=== PATIENT | female | born 1935 | race Caucasian/White ===

== ENCOUNTER 2016-06-28 18:25 | Inpatient (IN) | payer OTHER ==
[~2016-06-28] VITALS: Ht 167.6 cm; Wt 72.5 kg
[~2016-06-28 18:25] MED LIST: ATORVASTATIN CA40 MG PO; CARDIZEM CD,CA240 MG PO; CLORAZEPATE D3.75 MG PO; CYANOCOBALAM1000 MCG PO; DIGOX125 MCG PO; DILTIAZEM 24HR240 MG PO; ENDOCET 5-3251 EACH PO; EVISTA60 MG PO; FUROSEMIDE20 MG PO; HYDROCHLOROTHIA25 MG PO; LEVOFLOXACIN750 MG PO; LIORESAL10 MG PO; PHENYTOIN SODI100 M1 PO; POTASSIUM CHLO10 ME3 PO; PRESERVISION T1 EACH PO; PROTONIX40 MG PO; SENNA PLUS TAB1 EACH PO; SODIUM CHLORIDE1 G1 PO; TOPIRAMATE25 MG PO; TRAMADOL HCL50 MG PO; TYLENOL ARTHRI650 MG PO; WARFARIN SODIUM2 MG PO
[2016-06-28 20:27] LABS: EOSINOPHIL (%) 0.2 % (0-5); HEMATOCRIT 43.7 % (36.0-46.0); IMMATURE GRANULOCYTE (%) 0.7 % (0.0-0.7); INSTRUMENT ABS NEUTROPHIL CT 5.1 K/uL; LYMPHOCYTE COUNT 0.2 K/uL (1.0-2.8); MCH 30.8 PG (29.0-34.0); MCHC 32.7 G/DL (30.0-36.0); MCV 94.2 FL (83-99); MEAN PLAT.VOLUME 10.8 uM^3 (9.5-12.4); MONOCYTE COUNT 0.3 K/uL (0-0.8); NEUTROPHIL COUNT 5.1 K/uL (1.8-6.4); PLATELET COUNT 183 K/uL (156-360); RBC DIS.WIDTH-CV 14.6 % (11.8-14.6); RBC DIS.WIDTH-SD 50.9 % (39-53); RED BLOOD COUNT 4.64 M/uL (3.80-5.20); WHITE BLOOD COUNT 5.6 K/uL (4.1-10.2)
[2016-06-28 20:30] LABS: CHLORIDE 109 mEq/L (99-109); POTASSIUM 3.4 mEq/L (3.7-5.4); SODIUM 141 mEq/L (136-147)
[2016-06-28 20:32] LABS: GLUCOSE 142 mg/dL (70-99)
[2016-06-28 20:33] LABS: ANION GAP 11 MEQ/L (2-14)
[2016-06-28 20:35] LABS: ALKALINE PHOSPHATASE 86 IU/L (3-129)
[2016-06-28 20:36] LABS: GFR ESTIMATE (CALCULATED) > 59 mL/min/
[2016-06-28 20:37] LABS: UREA NITROGEN (BUN) 30 mg/dL (9-23)
[2016-06-28 20:39] LABS: LIPASE 18 U/L (1.0-51.0)
[2016-06-28 20:48] LABS: ADD MIUA? YES; BILIRUBIN NEGATIVE; BLOOD MODERATE; COLOR YELLOW ((YELLOW)); GLUCOSE (STRIP) NEGATIVE; KETONES 5; LEUKOCYTES NEGATIVE; NITRITE NEGATIVE; PROTEIN (STRIP) 100; SPECIFIC GRAVITY 1.016 (1.000-1.030); UROBILINOGEN 0.2 MG/DL (0.2-1.0)
[2016-06-28 20:49] LABS: TROP-I INTERPRETATION POSITIVE
[2016-06-28 20:55] LABS: BACTERIA 1+ /HPF; CALCIUM OXALATE CRYSTALS 1+ /HPF; EPITHELIAL CELLS RARE /HPF; MUCUS NONE SEEN /LPF; RED BLOOD CELLS TNTC /HPF (0-5); UCUL ADDED? NO
[2016-06-28 21:08] LABS: TROPONIN-I 4.17 ng/mL (0.0-0.30)
[2016-06-28] MEDS ORDERED: K-DUR10 MEQ PO (23:27)
[2016-06-28] MEDS ORDERED: COLACE100 MG PO (23:28)
[2016-06-28] MEDS ORDERED: COUMADIN4 MG PO (23:30)
[2016-06-28] MEDS ORDERED: COUMADIN1 MG PO (23:30)
[2016-06-29 01:52] LABS: HEMATOCRIT 41.5 % (36.0-46.0); MCH 31.1 PG (29.0-34.0); MCHC 32.5 G/DL (30.0-36.0); MCV 95.6 FL (83-99); MEAN PLAT.VOLUME 11.8 uM^3 (9.5-12.4); PLATELET COUNT 171 K/uL (156-360); RBC DIS.WIDTH-CV 14.7 % (11.8-14.6); RBC DIS.WIDTH-SD 52.1 % (39-53); RED BLOOD COUNT 4.34 M/uL (3.80-5.20); WHITE BLOOD COUNT 3.8 K/uL (4.1-10.2)
[2016-06-29 02:00] LABS: DIGOXIN < 0.3 ng/mL (0.8-2.0)
[2016-06-29 03:25] VITALS: BP 138/74
[2016-06-29 04:38] LABS: TROP-I INTERPRETATION POSITIVE
[2016-06-29 04:50] LABS: CREATINE KINASE 277 IU/L (1-294); TOTAL CK 277 IU/L (1-294)
[2016-06-29 04:57] LABS: CK-MB 17.4 ng/mL (0.0-4.9)
[2016-06-29 05:59] LABS: EOSINOPHIL (%) 0.2 % (0-5); HEMATOCRIT 39.5 % (36.0-46.0); IMMATURE GRANULOCYTE (%) 0.2 % (0.0-0.7); INSTRUMENT ABS NEUTROPHIL CT 2.9 K/uL; LYMPHOCYTE COUNT 0.7 K/uL (1.0-2.8); MCH 30.9 PG (29.0-34.0); MCHC 32.4 G/DL (30.0-36.0); MCV 95.4 FL (83-99); MEAN PLAT.VOLUME 11.3 uM^3 (9.5-12.4); MONOCYTE (%) 10.4 % (3-12); MONOCYTE COUNT 0.4 K/uL (0-0.8); NEUTROPHIL (%) 71.5 % (45-76); NEUTROPHIL COUNT 2.9 K/uL (1.8-6.4); PLATELET COUNT 162 K/uL (156-360); RBC DIS.WIDTH-CV 14.8 % (11.8-14.6); RBC DIS.WIDTH-SD 52.3 % (39-53); RED BLOOD COUNT 4.14 M/uL (3.80-5.20); WHITE BLOOD COUNT 4.1 K/uL (4.1-10.2)
[2016-06-29 06:05] LABS: PTT 76.9 (25-32)
[2016-06-29 06:35] LABS: TROP-I INTERPRETATION POSITIVE; TROPONIN-I 6.27 ng/mL (0.0-0.30)
[2016-06-29 06:46] LABS: HDL CHOLESTEROL 65 MG/DL (Desirable>=50); LDL CHOLESTEROL 78 mg/dL (Desirable<100); NON-HDL CHOLESTEROL 88 mg/dL (Desirable<160); TOTAL CHOLESTEROL 153 mg/dL (Desirable<200); TRIGLYCERIDES 49 MG/DL (Normal: <150)
[2016-06-29 06:57] LABS: INTER. NORMALIZED RATIO 1.9; PROTHROMBIN TIME 19.7 (9.2-11.2)
[2016-06-29 07:13] LABS: Estimated Average Glucose 105 mg/dL (70-123); HEMOGLOBIN A1c (GLYCOHEMOGLOB) 5.3 % HGB (Below 5.7)
[2016-06-29 08:14] VITALS: BP 142/67
[2016-06-29 09:53] LABS: TROP-I INTERPRETATION POSITIVE; TROPONIN-I 4.74 ng/mL (0.0-0.30)
[2016-06-29 10:05] LABS: CREATINE KINASE 273 IU/L (1-294); TOTAL CK 273 IU/L (1-294)
[2016-06-29 11:40] VITALS: BP 121/65
[2016-06-29 13:57] LABS: TROP-I INTERPRETATION POSITIVE
[2016-06-29 16:33] VITALS: BP 129/64
[2016-06-29 16:34] LABS: ADD MIUA? YES; BILIRUBIN NEGATIVE; BLOOD LARGE; COLOR AMBER ((YELLOW)); GLUCOSE (STRIP) NEGATIVE; KETONES NEGATIVE; LEUKOCYTES MODERATE; NITRITE NEGATIVE; PROTEIN (STRIP) 30; SPECIFIC GRAVITY 1.021 (1.000-1.030)
[2016-06-29 16:50] LABS: BACTERIA RARE /HPF; CALCIUM OXALATE CRYSTALS 1+ /HPF; EPITHELIAL CELLS RARE /HPF; MUCUS 1+ /LPF; RED BLOOD CELLS TNTC /HPF (0-5); WHITE BLOOD CELLS TNTC /HPF (0-5)
[2016-06-29 20:00] VITALS: BP 143/67
[2016-06-30] VITALS (7 sets, daily range): BP systolic 144–196; BP diastolic 79–100
[2016-06-30 06:40] LABS: HEMATOCRIT 40.4 % (36.0-46.0); MCH 30.7 PG (29.0-34.0); MCHC 31.7 G/DL (30.0-36.0); MCV 96.9 FL (83-99); MEAN PLAT.VOLUME 10.9 uM^3 (9.5-12.4); PLATELET COUNT 138 K/uL (156-360); RBC DIS.WIDTH-CV 14.7 % (11.8-14.6); RBC DIS.WIDTH-SD 53.1 % (39-53); RED BLOOD COUNT 4.17 M/uL (3.80-5.20); WHITE BLOOD COUNT 3.4 K/uL (4.1-10.2)
[2016-06-30 07:06] LABS: ALKALINE PHOSPHATASE 61 IU/L (3-129); ANION GAP 9 MEQ/L (2-14); CHLORIDE 107 MEQ/L (99-109); GFR ESTIMATE (CALCULATED) > 59 mL/min/; SAMPLE HEMOLYSIS CHECK 1; SAMPLE ICTERIC CHECK 0; SAMPLE LIPEMIA CHECK 0; SODIUM 140 MEQ/L (136-147); UREA NITROGEN (BUN) 30 mg/dL (9-23)
[2016-06-30 07:07] LABS: CREATINE KINASE 129 IU/L (1-294); GLUCOSE 87 mg/dL (70-99); POTASSIUM 3.4 MEQ/L (3.7-5.4)
[2016-06-30 07:22] LABS: LACTATE DEHYDROGENASE 273 IU/L (20-246)
[2016-07-01 04:00] VITALS: BP 173/85
[2016-07-01 08:58] VITALS: BP 140/81
[2016-07-01 11:47] VITALS: BP 181/86
[2016-07-01 15:02] VITALS: BP 136/66
[2016-07-01 20:00] VITALS: BP 139/71
[2016-07-02 01:58] VITALS: BP 138/66
[2016-07-02 06:58] LABS: EOSINOPHIL (%) 1.7 % (0-5); EOSINOPHIL COUNT 0.1 K/uL (0-0.3); HEMATOCRIT 43.1 % (36.0-46.0); IMMATURE GRANULOCYTE (%) 0.3 % (0.0-0.7); LYMPHOCYTE COUNT 0.7 K/uL (1.0-2.8); MCH 30.9 PG (29.0-34.0); MCHC 31.8 G/DL (30.0-36.0); MCV 97.1 FL (83-99); MEAN PLAT.VOLUME 11.8 uM^3 (9.5-12.4); MONOCYTE (%) 7.5 % (3-12); MONOCYTE COUNT 0.2 K/uL (0-0.8); NEUTROPHIL (%) 66.7 % (45-76); PLATELET COUNT 146 K/uL (156-360); RBC DIS.WIDTH-CV 14.5 % (11.8-14.6); RBC DIS.WIDTH-SD 51.9 % (39-53); RED BLOOD COUNT 4.44 M/uL (3.80-5.20); WHITE BLOOD COUNT 2.9 K/uL (4.1-10.2)
[2016-07-02 07:13] LABS: PTT 45.2 (25-32)
[2016-07-02 08:36] LABS: ANION GAP 8 MEQ/L (2-14); CHLORIDE 106 MEQ/L (99-109); SAMPLE HEMOLYSIS CHECK 0; SAMPLE ICTERIC CHECK 0; SAMPLE LIPEMIA CHECK 0; SODIUM 138 MEQ/L (136-147)
[2016-07-02 08:42] LABS: GFR ESTIMATE (CALCULATED) > 59 mL/min/; GLUCOSE 102 mg/dL (70-99); UREA NITROGEN (BUN) 25 mg/dL (9-23)
[2016-07-02 09:00] VITALS: BP 161/92
[2016-07-02 11:57] LABS: INTER. NORMALIZED RATIO 1.1; PROTHROMBIN TIME 11.6 (9.2-11.2)
[2016-07-02 20:00] VITALS: BP 129/61
== END 2016-07-02 22:39 | disposition short-term general hospital (02) | DRG 281 ==
LOC: EME 18:25 → EDOF 06-29 00:31 → 4EAST 06-29 00:31
PROVIDERS: Emergency Medicine; Internal Medicine; Internal Medicine Cardiovascular Disease; Nurse Practitioner Adult Health
DX: I21.4 Non-ST elevation (NSTEMI) myocardial infarction (principal); M62.82 Rhabdomyolysis; I25.10 Atherosclerotic heart disease of native coronary artery without angina pectoris; R31.9 Hematuria, unspecified; R33.9 Retention of urine, unspecified; N20.0 Calculus of kidney; I48.2 Chronic atrial fibrillation; I10 Essential (primary) hypertension; E78.5 Hyperlipidemia, unspecified; I27.2 Other secondary pulmonary hypertension; I05.9 Rheumatic mitral valve disease, unspecified; G40.909 Epilepsy, unspecified, not intractable, without status epilepticus; M48.06 Spinal stenosis, lumbar region; M19.90 Unspecified osteoarthritis, unspecified site; Z79.01 Long term (current) use of anticoagulants; Z86.718 Personal history of other venous thrombosis and embolism; Z85.038 Personal history of other malignant neoplasm of large intestine; Z85.42 Personal history of malignant neoplasm of other parts of uterus
CPT/HCPCS: 72100; 74000; 76770; 80048; 80053; 80061; 80162; 80185; 81003; 82550; 82550 91; 82553; 83036; 83615; 83690; 84484; 85025; 85027; 85347; 85610; 85730; 87077; 87086; 87186; 93005; 99281; 99285; C1725; C1769; C1887; J0360; J0696; J1644; J2250; J3010; J7040; J7050

== ENCOUNTER 2016-11-19 16:14 | Emergency (ER) | payer OTHER ==
[~2016-11-19] VITALS: Ht 177.8 cm; Wt 66.8 kg
[~2016-11-19 16:14] MED LIST changes: +COLACE100 MG PO; +COUMADIN1 MG PO; +COUMADIN4 MG PO; +K-DUR10 MEQ PO
[2016-11-19 17:11] LABS: EOSINOPHIL (%) 0.2 % (0-5); HEMATOCRIT 42.7 % (36.0-46.0); IMMATURE GRANULOCYTE (%) 0.6 % (0.0-0.7); INSTRUMENT ABS NEUTROPHIL CT 4.2 K/uL; LYMPHOCYTE COUNT 0.6 K/uL (1.0-2.8); MCH 30.4 PG (29.0-34.0); MEAN PLAT.VOLUME 10.5 uM^3 (9.5-12.4); MONOCYTE (%) 6.3 % (3-12); MONOCYTE COUNT 0.3 K/uL (0-0.8); NEUTROPHIL (%) 80.6 % (45-76); NEUTROPHIL COUNT 4.2 K/uL (1.8-6.4); PLATELET COUNT 170 K/uL (156-360); RBC DIS.WIDTH-SD 47.4 % (39-53); RED BLOOD COUNT 4.64 M/uL (3.80-5.20); WHITE BLOOD COUNT 5.2 K/uL (4.1-10.2)
[2016-11-19 17:17] LABS: INTER. NORMALIZED RATIO 3.3; PROTHROMBIN TIME 37.9 SEC (10.2-12.9)
[2016-11-19 17:22] LABS: CHLORIDE 102 mEq/L (99-109); POTASSIUM 3.3 mEq/L (3.7-5.4); SODIUM 138 mEq/L (136-147)
[2016-11-19 17:24] LABS: GLUCOSE 109 mg/dL (70-99)
[2016-11-19 17:25] LABS: ANION GAP 9 MEQ/L (2-14)
[2016-11-19 17:26] LABS: TOTAL BILIRUBIN 0.7 mg/dL (0.0-1.0)
[2016-11-19 17:27] LABS: ALKALINE PHOSPHATASE 62 IU/L (3-129)
[2016-11-19 17:28] LABS: GFR ESTIMATE (CALCULATED) 56 mL/min/
[2016-11-19 17:29] LABS: UREA NITROGEN (BUN) 21 mg/dL (9-23)
[2016-11-19 17:31] LABS: ADD MIUA? YES; BILIRUBIN NEGATIVE; BLOOD LARGE; COLOR YELLOW ((YELLOW)); GLUCOSE (STRIP) NEGATIVE; KETONES NEGATIVE; LEUKOCYTES NEGATIVE; NITRITE NEGATIVE; PROTEIN (STRIP) 100; UROBILINOGEN 0.2 MG/DL (0.2-1.0)
[2016-11-19 17:32] LABS: TROP-I INTERPRETATION NEGATIVE; TROPONIN-I 0.29 ng/mL (0.0-0.30)
[2016-11-19 17:45] LABS: EPITHELIAL CELLS 1+ /HPF; RED BLOOD CELLS 20-30 /HPF (0-5); WHITE BLOOD CELLS 0-5 /HPF (0-5)
[2016-11-19 17:46] LABS: BACTERIA 1+ /HPF; CASTS NONE SEEN /LPF; CRYSTALS NONE SEEN; MUCUS NONE SEEN /LPF; UCUL ADDED? NO
[2016-11-19 21:39] VITALS: BP 169/84
== END 2016-11-19 22:05 | disposition home or self-care (01) ==
LOC: EME 16:14
PROVIDERS: Emergency Medicine
DX: E86.0 Dehydration (principal); E87.6 Hypokalemia; Z87.440 Personal history of urinary (tract) infections; K21.9 Gastro-esophageal reflux disease without esophagitis; I10 Essential (primary) hypertension; R56.9 Unspecified convulsions; Z79.01 Long term (current) use of anticoagulants
CPT/HCPCS: 74176; 80053; 81003; 84484; 85025; 85610; 85730; 93005; 99281; 99285; J1885; J7040

== ENCOUNTER 2017-04-11 11:14 | Inpatient (IN) | payer OTHER ==
[~2017-04-11] VITALS: Ht 167.6 cm; Wt 66.0 kg
[~2017-04-11 11:14] MED LIST changes: -COUMADIN4 MG PO; +COUMADIN6 MG PO; -TYLENOL ARTHRI650 MG PO; +TYLENOL EXTRA500 MG PO
[2017-04-11 11:46] LABS: BASOPHIL (%) 0.2 % (0-1); EOSINOPHIL (%) 0.5 % (0-5); HEMATOCRIT 44.8 % (36.0-46.0); HEMOGLOBIN 14.8 G/DL (11.9-15.5); IMMATURE GRANULOCYTE (%) 0.2 % (0.0-0.7); LYMPHOCYTE (%) 11.1 % (15-42); LYMPHOCYTE COUNT 0.5 K/uL (1.0-2.8); MCH 32.3 PG (29.0-34.0); MCV 97.8 FL (83-99); MONOCYTE (%) 7.1 % (3-12); MONOCYTE COUNT 0.3 K/uL (0-0.8); NEUTROPHIL (%) 80.9 % (45-76); NEUTROPHIL COUNT 3.5 K/uL (1.8-6.4); PLATELET COUNT 142 K/uL (156-360); RBC DIS.WIDTH-CV 13.2 % (11.8-14.6); RBC DIS.WIDTH-SD 47.3 % (39-53); RED BLOOD COUNT 4.58 M/uL (3.80-5.20); WHITE BLOOD COUNT 4.3 K/uL (4.1-10.2)
[2017-04-11 11:55] LABS: PTT 69.3 SEC (25-37)
[2017-04-11 12:04] LABS: ALBUMIN 4.3 g/dL (3.2-4.8); CHLORIDE 107 mEq/L (99-109); POTASSIUM 4.4 mEq/L (3.7-5.4); SODIUM 140 mEq/L (136-147)
[2017-04-11 12:05] LABS: MAGNESIUM 2.3 mg/dL (1.3-2.7)
[2017-04-11 12:07] LABS: GLUCOSE 126 mg/dL (70-99); TOTAL PROTEIN 6.9 g/dL (6.4-8.3)
[2017-04-11 12:09] LABS: TOTAL BILIRUBIN 0.5 mg/dL (0.0-1.0)
[2017-04-11 12:10] LABS: ALKALINE PHOSPHATASE 62 IU/L (3-129)
[2017-04-11 12:11] LABS: GFR ESTIMATE (CALCULATED) 56 mL/min/; TROP-I INTERPRETATION NEGATIVE; TROPONIN-I 0.02 ng/mL (0.0-0.30)
[2017-04-11 12:12] LABS: AST (GOT) 16 IU/L (2-34); UREA NITROGEN (BUN) 35 mg/dL (9-23)
[2017-04-11 12:13] LABS: ALT (GPT) 15 IU/L (3-49)
[2017-04-11 12:14] LABS: CREATINE KINASE 45 IU/L (1-294); TOTAL CK 45 IU/L (1-294)
[2017-04-11 12:14] LABS: APPEARANCE CLOUDY ((CLEAR)); BILIRUBIN NEGATIVE; BLOOD LARGE; COLOR YELLOW ((YELLOW)); GLUCOSE (STRIP) NEGATIVE; KETONES NEGATIVE; LEUKOCYTES SMALL; NITRITE NEGATIVE; PROTEIN (STRIP) 30; SPECIFIC GRAVITY 1.014 (1.000-1.030); UROBILINOGEN 0.2 MG/DL (0.2-1.0)
[2017-04-11 12:21] LABS: CKMB RELATIVE INDEX 4.4 (0.0-3.9)
[2017-04-11 12:22] LABS: DIGOXIN 0.9 ng/mL (0.8-2.0); INTER. NORMALIZED RATIO 16.7
[2017-04-11 12:35] LABS: EPITHELIAL CELLS 1+ /HPF; RED BLOOD CELLS 20-30 /HPF (0-5)
[2017-04-11 12:36] LABS: AMORPHOUS URATES CRYSTALS 3+; BACTERIA 3+ /HPF; MUCUS NONE SEEN /LPF; UCUL ADDED? YES
[2017-04-11] MEDS ORDERED: VESICARE5 MG PO (16:19)
[2017-04-11] MEDS ORDERED: PLAVIX75 MG PO (16:19)
[2017-04-11] MEDS ORDERED: FUROSEMIDE40 MG PO (16:19)
[2017-04-11 17:55] VITALS: BP 160/80
[2017-04-11 18:53] LABS: TROP-I INTERPRETATION NEGATIVE; TROPONIN-I 0.08 ng/mL (0.0-0.30)
[2017-04-11 20:22] VITALS: BP 102/55
[2017-04-11 23:17] VITALS: BP 105/58
[2017-04-12 01:05] LABS: TROP-I INTERPRETATION NEGATIVE; TROPONIN-I 0.07 ng/mL (0.0-0.30)
[2017-04-12 03:50] VITALS: BP 136/67
[2017-04-12 05:57] LABS: HEMOGLOBIN 14.3 G/DL (11.9-15.5); MCH 31.4 PG (29.0-34.0); MCHC 31.8 G/DL (30.0-36.0); MCV 98.7 FL (83-99); PLATELET COUNT 148 K/uL (156-360); RBC DIS.WIDTH-CV 13.2 % (11.8-14.6); RBC DIS.WIDTH-SD 48.1 % (39-53); RED BLOOD COUNT 4.56 M/uL (3.80-5.20); WHITE BLOOD COUNT 4.1 K/uL (4.1-10.2)
[2017-04-12 06:17] LABS: INTER. NORMALIZED RATIO 10.2
[2017-04-12 06:31] LABS: CHLORIDE 107 MEQ/L (99-109); GFR ESTIMATE (CALCULATED) 56 mL/min/; POTASSIUM 4.4 MEQ/L (3.7-5.4); SODIUM 139 MEQ/L (136-147); UREA NITROGEN (BUN) 30 mg/dL (9-23)
[2017-04-12 06:36] LABS: GLUCOSE 81 mg/dL (70-99)
[2017-04-12 08:00] VITALS: BP 138/66
[2017-04-12 13:52] VITALS: BP 133/51
[2017-04-12 15:23] LABS: INTER. NORMALIZED RATIO 6.2
[2017-04-12 15:36] VITALS: BP 136/63
[2017-04-12 19:32] VITALS: BP 115/56
[2017-04-13] VITALS (7 sets, daily range): BP systolic 112–142; BP diastolic 53–79
[2017-04-13 06:48] LABS: HEMATOCRIT 41.2 % (36.0-46.0); MCH 31.6 PG (29.0-34.0); MCHC 31.6 G/DL (30.0-36.0); PLATELET COUNT 125 K/uL (156-360); RBC DIS.WIDTH-CV 13.2 % (11.8-14.6); RBC DIS.WIDTH-SD 48.2 % (39-53); RED BLOOD COUNT 4.12 M/uL (3.80-5.20); WHITE BLOOD COUNT 3.5 K/uL (4.1-10.2)
[2017-04-13 07:14] LABS: INTER. NORMALIZED RATIO 2.5; PTT 38.1 SEC (25-37)
[2017-04-13 07:15] LABS: CHLORIDE 105 MEQ/L (99-109); CREATININE 1.1 MG/DL (0.6-1.3); GFR ESTIMATE (CALCULATED) 50 mL/min/; POTASSIUM 4.1 MEQ/L (3.7-5.4); SODIUM 135 MEQ/L (136-147); UREA NITROGEN (BUN) 32 mg/dL (9-23)
[2017-04-13 07:18] LABS: GLUCOSE 112 mg/dL (70-99)
[2017-04-14 03:42] VITALS: BP 147/71
[2017-04-14 06:11] LABS: HEMATOCRIT 36.7 % (36.0-46.0); MCH 32.2 PG (29.0-34.0); MCHC 32.7 G/DL (30.0-36.0); MCV 98.4 FL (83-99); PLATELET COUNT 125 K/uL (156-360); RBC DIS.WIDTH-CV 12.9 % (11.8-14.6); RBC DIS.WIDTH-SD 46.4 % (39-53); RED BLOOD COUNT 3.73 M/uL (3.80-5.20); WHITE BLOOD COUNT 2.9 K/uL (4.1-10.2)
[2017-04-14 06:16] LABS: INTER. NORMALIZED RATIO 2.5
[2017-04-14 06:19] LABS: PTT 36.4 SEC (25-37)
[2017-04-14 06:39] LABS: CHLORIDE 109 MEQ/L (99-109); CREATININE 0.7 MG/DL (0.6-1.3); GFR ESTIMATE (CALCULATED) > 59 mL/min/; GLUCOSE 112 mg/dL (70-99); POTASSIUM 4.1 MEQ/L (3.7-5.4); SODIUM 138 MEQ/L (136-147); UREA NITROGEN (BUN) 25 mg/dL (9-23)
[2017-04-14 07:55] VITALS: BP 142/80
[2017-04-14 11:24] VITALS: BP 147/67
[2017-04-14 16:16] VITALS: BP 120/58
[2017-04-14 19:52] VITALS: BP 168/73
[2017-04-14 23:48] VITALS: BP 131/60
[2017-04-15 03:34] VITALS: BP 170/69
[2017-04-15 06:59] VITALS: BP 178/75
[2017-04-15 11:06] VITALS: BP 169/72
[2017-04-15 15:11] VITALS: BP 133/79
[2017-04-15 19:46] VITALS: BP 168/56
[2017-04-16 00:17] VITALS: BP 146/65
[2017-04-16 04:24] VITALS: BP 150/70
[2017-04-16 07:55] VITALS: BP 188/93
[2017-04-16 08:07] LABS: CREATININE 0.5 MG/DL (0.6-1.3); GFR ESTIMATE (CALCULATED) > 59 mL/min/
[2017-04-16 12:00] VITALS: BP 162/76
[2017-04-16 16:00] VITALS: BP 151/69
[2017-04-16 19:38] VITALS: BP 132/63
[2017-04-17 00:47] VITALS: BP 160/71
[2017-04-17 04:39] VITALS: BP 141/82
[2017-04-17 06:27] LABS: HEMATOCRIT 39.2 % (36.0-46.0); MCH 32.1 PG (29.0-34.0); MCHC 33.2 G/DL (30.0-36.0); MCV 96.8 FL (83-99); PLATELET COUNT 145 K/uL (156-360); RBC DIS.WIDTH-CV 12.7 % (11.8-14.6); RBC DIS.WIDTH-SD 45.4 % (39-53); RED BLOOD COUNT 4.05 M/uL (3.80-5.20); WHITE BLOOD COUNT 3.2 K/uL (4.1-10.2)
[2017-04-17 06:56] LABS: CHLORIDE 101 MEQ/L (99-109); CREATININE 0.6 MG/DL (0.6-1.3); GFR ESTIMATE (CALCULATED) > 59 mL/min/; GLUCOSE 98 mg/dL (70-99); POTASSIUM 4.2 MEQ/L (3.7-5.4); SODIUM 134 MEQ/L (136-147); UREA NITROGEN (BUN) 19 mg/dL (9-23)
[2017-04-17 07:34] VITALS: BP 165/77
[2017-04-17 11:23] VITALS: BP 161/69
[2017-04-17] MEDS ORDERED: AMLODIPINE BESYL5 MG PO (12:42)
[2017-04-17] MEDS ORDERED: ASPIR-LOW81 MG PO (12:43)
[2017-04-17] MEDS ORDERED: ENDOCET 5-3251 EACH PO (12:45)
[2017-04-17] MEDS ORDERED: GABAPENTIN100 MG PO (12:45)
[2017-04-17] MEDS ORDERED: CYCLOBENZAPRINE5 MG PO (13:12)
== END 2017-04-17 15:58 | DRG 683 ==
LOC: EME 11:14 → 5SOUTH 15:44 → EDOF 15:44 → ENRESERV 15:48 → EDOF 16:00 → ENRESERV 16:08 → 4SOUTH 17:52 → ENRESERV 04-12 11:29 → 5SOUTH 04-12 14:26 → ENPENDDIS 04-17 → 5SOUTH 04-17 15:58
PROVIDERS: Emergency Medicine; Internal Medicine; Nurse Practitioner Adult Health; Physician Assistant
DX: N17.9 Acute kidney failure, unspecified (principal); N39.0 Urinary tract infection, site not specified; E86.0 Dehydration; E87.6 Hypokalemia; R79.1 Abnormal coagulation profile; D69.6 Thrombocytopenia, unspecified; I49.5 Sick sinus syndrome; I11.9 Hypertensive heart disease without heart failure; I27.20 Pulmonary hypertension, unspecified; I48.2 Chronic atrial fibrillation; F03.90 Unspecified dementia, unspecified severity, without behavioral disturbance, psychotic disturbance, mood disturbance, and anxiety; G40.909 Epilepsy, unspecified, not intractable, without status epilepticus; M54.16 Radiculopathy, lumbar region; M50.00 Cervical disc disorder with myelopathy, unspecified cervical region; G62.9 Polyneuropathy, unspecified; I09.9 Rheumatic heart disease, unspecified; M48.061 Spinal stenosis, lumbar region without neurogenic claudication; M48.02 Spinal stenosis, cervical region; I25.10 Atherosclerotic heart disease of native coronary artery without angina pectoris; K21.9 Gastro-esophageal reflux disease without esophagitis; M19.90 Unspecified osteoarthritis, unspecified site; E78.5 Hyperlipidemia, unspecified; I25.2 Old myocardial infarction; R29.6 Repeated falls; R32 Unspecified urinary incontinence; F41.9 Anxiety disorder, unspecified; G43.909 Migraine, unspecified, not intractable, without status migrainosus; M79.606 Pain in leg, unspecified; R26.9 Unspecified abnormalities of gait and mobility; Z79.01 Long term (current) use of anticoagulants; Z82.49 Family history of ischemic heart disease and other diseases of the circulatory system; Z85.038 Personal history of other malignant neoplasm of large intestine; Z86.718 Personal history of other venous thrombosis and embolism; Z90.49 Acquired absence of other specified parts of digestive tract; Z90.710 Acquired absence of both cervix and uterus; Z91.81 History of falling; Z98.61 Coronary angioplasty status
CPT/HCPCS: 70450; 71010; 72141; 72146; 72148; 80048; 80053; 80162; 80185; 81003; 82550; 82553; 82565; 83605; 83735; 84484; 85025; 85027; 85610; 85730; 87040; 87077; 87086; 87186; 93005; 93970; 97530 GP; 99281; 99285; J0360; J0696; J2405; J3370; J7030; J7040

== ENCOUNTER 2017-05-08 08:14 | Emergency (ER) | payer OTHER ==
[~2017-05-08] VITALS: Ht 170.2 cm; Wt 67.8 kg
[~2017-05-08 08:14] MED LIST changes: +AMLODIPINE BESYL5 MG PO; +ASPIR-LOW81 MG PO; +CYCLOBENZAPRINE5 MG PO; +FUROSEMIDE40 MG PO; +GABAPENTIN100 MG PO; +PLAVIX75 MG PO; -TOPIRAMATE25 MG PO; +TOPIRAMATE50 MG PO; +VESICARE5 MG PO
[2017-05-08 08:58] LABS: MCH 31.9 PG (29.0-34.0); NRBC (%) 0.6 /100 WBC (0-0); PLATELET COUNT 164 K/uL (156-360); RBC DIS.WIDTH-SD 48.2 % (39-53); WHITE BLOOD COUNT 6.5 K/uL (4.1-10.2)
[2017-05-08 09:00] LABS: INTER. NORMALIZED RATIO 1.5
[2017-05-08 09:02] LABS: PTT 33.2 SEC (25-37)
[2017-05-08 09:08] LABS: ALBUMIN 2.2 g/dL (3.2-4.8)
[2017-05-08 09:09] LABS: CHLORIDE 101 mEq/L (99-109); POTASSIUM 3.9 mEq/L (3.7-5.4); SODIUM 136 mEq/L (136-147)
[2017-05-08 09:11] LABS: GLUCOSE 95 mg/dL (70-99); TOTAL PROTEIN 3.1 g/dL (6.4-8.3)
[2017-05-08 09:13] LABS: TOTAL BILIRUBIN 0.5 mg/dL (0.0-1.0); TROP-I INTERPRETATION NEGATIVE; TROPONIN-I 0.05 ng/mL (0.0-0.30)
[2017-05-08 09:14] LABS: ALKALINE PHOSPHATASE 55 IU/L (3-129)
[2017-05-08 09:15] LABS: CREATININE 0.7 mg/dL (0.6-1.3); GFR ESTIMATE (CALCULATED) > 59 mL/min/
[2017-05-08 09:16] LABS: AST (GOT) 42 IU/L (2-34); UREA NITROGEN (BUN) 23 mg/dL (9-23)
[2017-05-08 09:18] LABS: ALT (GPT) 36 IU/L (3-49)
[2017-05-08 09:51] LABS: MCV 102.8 FL (83-99); RED BLOOD COUNT 2.82 M/uL (3.80-5.20)
[2017-05-08 09:59] LABS: ABS NEUTROPHIL COUNT 5.6; ANISOCYTOSIS 1+; ATYPICAL LYMPHOCYTE 3.6 %; BAND NEUTROPHILS 29.5 % (0-8.0); EOSINOPHIL ABS CT 0; LYMPHOCYTES 2.7 % (15.0-45.0); MACROCYTES 1+; METAMYELOCYTES 3.6 %; MONOCYTES 4.4 % (0-9.0); NUCLEATED RBC'S 3.6; OVALOCYTES 1+; PLAT.SUFFICIENCY ADEQUATE; POIKILOCYTOSIS 1+; SEG.NEUTROPHILS 56.2 % (46.0-76.0)
[2017-05-08 12:20] VITALS: BP 98/40
[2017-05-08 12:59] LABS: BASE EXCESS -10.7 mEq/L (-3 to +3); BICARBONATE 19.7 mEq/L (22-26); CARBOXY HGB 2.2 % (0-5); METHEMOGLOBIN 1.3 % (0-1.5); PCO2 65 mm Hg (35-45); PO2 98 mm Hg (80-100)
[2017-05-08 13:00] LABS: COMMENTS - BLOOD GASES A+C+; DEVICE HFNC; O2 FLOW 10 L/MIN; SITE RR; TOTAL RESP RATE 31 resp/min; pH 7.09 (7.35-7.45)
[2017-05-08 14:01] LABS: BASE EXCESS -6.2 mEq/L (-3 to +3); BICARBONATE 23.3 mEq/L (22-26); CARBOXY HGB 1.5 % (0-5); COMMENTS - BLOOD GASES A+C+; DEVICE 840; FI02 100 %; MECHANICAL RATE 16 resp/min; METHEMOGLOBIN 1.6 % (0-1.5); MODE AC; PCO2 64 mm Hg (35-45); PO2 226 mm Hg (80-100); SITE LR; pH 7.17 (7.35-7.45)
[2017-05-08 14:02] LABS: PEEP 5 CM/H20; TIDAL VOLUME 400 ML; TOTAL RESP RATE 20 resp/min
[2017-05-08] MEDS ORDERED: CIPRO500 MG PO (14:33)
[2017-05-08] MEDS ORDERED: GABAPENTIN100 MG PO ×2 (17:11→17:28)
[2017-05-08] MEDS ORDERED: ACETAMINOPHEN325 M1 PO (17:19)
[2017-05-08] MEDS ORDERED: MILK OF MAGN PO (17:20)
[2017-05-08] MEDS ORDERED: FLEET ENEMA-AD118 ML PR (17:21)
[2017-05-08] MEDS ORDERED: DULCOLAX10 MG PR (17:21)
== END 2017-05-08 18:00 ==
LOC: EME 08:14
PROVIDERS: Emergency Medicine
DX: K55.069 Acute infarction of intestine, part and extent unspecified (principal); K56.609 Unspecified intestinal obstruction, unspecified as to partial versus complete obstruction; R65.21 Severe sepsis with septic shock; I46.9 Cardiac arrest, cause unspecified; E87.2 Acidosis; K92.1 Melena; J90 Pleural effusion, not elsewhere classified; I25.10 Atherosclerotic heart disease of native coronary artery without angina pectoris; I67.9 Cerebrovascular disease, unspecified; I70.1 Atherosclerosis of renal artery; I70.0 Atherosclerosis of aorta; Z66 Do not resuscitate; I10 Essential (primary) hypertension; I25.2 Old myocardial infarction; I48.91 Unspecified atrial fibrillation; Z79.82 Long term (current) use of aspirin; Z79.01 Long term (current) use of anticoagulants; Z90.710 Acquired absence of both cervix and uterus; Z87.440 Personal history of urinary (tract) infections
CPT/HCPCS: 36600; 70450; 71045; 74177; 80053; 82803; 83605; 84484; 85025; 85610; 85730; 86850; 86900; 86901; 87070; 87077; 87186; 87205; 93005; 94002; 99281; 99285; C1751; J0330; J1160; J2270; J2543; J3370; J7030; J7040